=== PATIENT | female | born 1965 | race Caucasian/White ===

== ENCOUNTER 2017-11-18 08:16 | Outpatient (CLI) | payer OTHER | END 2017-11-18 08:19 | disposition home or self-care (01) | LOC: SONOGRAMA 08:16 | DX: E04.1 Nontoxic single thyroid nodule (principal) ==

== ENCOUNTER 2018-04-07 10:36 | Outpatient (CLI) | payer OTHER | END 2018-04-07 10:39 | disposition home or self-care (01) | LOC: SONOGRAMA 10:36 | DX: E04.1 Nontoxic single thyroid nodule (principal) ==